=== PATIENT | female | born 1990 | race Caucasian/White ===

== ENCOUNTER 2019-07-14 05:35 | Inpatient (IN) ==
[2019-07-14] MEDS ORDERED: Metoclopramide 10 MG/2 ML VIAL IVP PRN ×2 (05:39→11:12)
[2019-07-14] MEDS ORDERED: Naloxone 0.4 MG/ML INJ IVP PRN (05:39)
[2019-07-14] MEDS ORDERED: Famotidine 20 MG/2 ML VIAL IVP PRN (05:39)
[2019-07-14] MEDS ORDERED: Ringers Solution, Lactated 1,000 ML IVC SCH (05:45)
[2019-07-14 06:43] LABS: Basophils % 0.3 %; Eosinophils # 0.1 K/mcL (0.0-0.6); Eosinophils % 1.6 %; Hematocrit 34.5 % (35.3-44.9); Hemoglobin 11.3 g/dL (11.5-15.4); Immature Granulocytes % 0.2 % (0-4); Lymphocytes # 1.9 K/mcL (0.6-4.6); Lymphocytes % 31.2 %; Mean Corpuscular HGB Conc 32.8 g/dL (31.6-35.5); Mean Corpuscular Hemoglobin 32.9 pg (28.0-33.3); Mean Corpuscular Volume 100.6 fL (83.0-100.0); Mean Platelet Volume 12.2 fL (9.4-12.4); Monocytes # 0.4 K/mcL (0.0-1.3); Monocytes % 6.3 %; Neutrophils # 3.7 K/mcL (1.6-8.9); Platelet Count 145 K/mcL (140-400); Red Blood Count 3.43 M/mcL (3.82-4.97); Red Cell Distribution Width 13.8 % (11.5-14.5); Segmented Neutrophils % 60.4 %; White Blood Count 6.2 K/mcL (4.3-11.1)
[2019-07-14] MEDS ORDERED: CeFAZolin Premix DUPLEX 2,000 MG/50 ML BAG IVPB ONE (07:00)
[2019-07-14] MEDS ORDERED: *HR* Morphine Sulfate/PF 10 MG/10 ML AMPUL ONE (07:33)
[2019-07-14] MEDS ORDERED: *HR* FentaNYL (PF) 100 MCG/2 ML VIAL ONE (07:33)
[2019-07-14] MEDS ORDERED: *HR* Oxytocin 10 UNIT/ML VIAL IM ONE (07:35)
[2019-07-14] MEDS ORDERED: *HR* Phenylephrine 10 MG/ML VIAL ONE (07:35)
[2019-07-14] MEDS ORDERED: Ibuprofen 400 MG TABLET PO PRN (07:55)
[2019-07-14] MEDS ORDERED: EPHEDrine 50 MG/ML VIAL ONE (07:55)
[2019-07-14] MEDS ORDERED: Ondansetron 4 MG/2 ML VIAL IVP PRN ×2 (07:55→11:12)
[2019-07-14] MEDS ORDERED: *HR* OxyCODONE/APAP 5/325 TABLET PO PRN (07:55)
[2019-07-14] MEDS ORDERED: Acetaminophen IV 1,000 MG/100 ML INFUS..BTL IVPB ONE (07:56)
[2019-07-14] MEDS ORDERED: Ringers Solution, Lactated 1,000 ML ONE ×2 (08:05→19:04)
[2019-07-14 08:20] LABS: Amphetamine Screen,Urine Negative ng/mL (Cutoff=1000); Barbiturate Screen,Urine Negative ng/mL (Cutoff=200); Benzodiazepines Screen,Urine Negative ng/mL (Cutoff=200); Cannabinoid Screen,Urine Negative ng/mL (Cutoff = 50); Cocaine Screen,Urine Negative ng/mL (Cutoff= 300); Opiate Screen,Urine Negative ng/mL (Cutoff=300); Phencyclidine Screen,Urine Negative ng/mL (Cutoff=25)
[2019-07-14] MEDS ORDERED: Oxytocin 20 units/ LR 1000 mL 20 UNIT/1,000 ML BAG IVC ONE (10:38)
[2019-07-14] MEDS ORDERED: Sennosides 8.6 MG TABLET PO PRN (11:12)
[2019-07-14] MEDS ORDERED: Oxytocin 20 units/ LR 1000 mL 20 UNIT/1,000 ML BAG IVC SCH (11:12)
[2019-07-14] MEDS: Ibuprofen 600 MG TABLET PO PRN ×2 (11:46→22:13)
[2019-07-14] MEDS: metroNIDAZOLE 500 MG TABLET PO SCH ×2 (13:05→22:14)
[2019-07-14] MEDS: Simethicone 80 MG TAB.CHEW PO PRN ×2 (15:47→22:13)
[2019-07-14] MEDS: *HR* OxyCODONE/APAP 5/325 TABLET PO PRN (15:47)
[2019-07-14] MEDS ORDERED: ceFAZolin 2,000 MG in Water for inj. (sterile) 10 ML IVP SCH (16:00)
[2019-07-15] MEDS: Ibuprofen 600 MG TABLET PO PRN ×3 (03:20→21:13)
[2019-07-15] MEDS: *HR* OxyCODONE/APAP 5/325 TABLET PO PRN ×5 (03:20→21:13)
[2019-07-15 06:54] LABS: Basophils % 0.3 %; Eosinophils # 0.1 K/mcL (0.0-0.6); Eosinophils % 1.9 %; Hematocrit 30.1 % (35.3-44.9); Hemoglobin 9.9 g/dL (11.5-15.4); Immature Granulocytes % 0.3 % (0-4); Lymphocytes # 1.5 K/mcL (0.6-4.6); Lymphocytes % 19.7 %; Mean Corpuscular HGB Conc 32.9 g/dL (31.6-35.5); Mean Corpuscular Hemoglobin 31.9 pg (28.0-33.3); Mean Corpuscular Volume 97.1 fL (83.0-100.0); Mean Platelet Volume 11.5 fL (9.4-12.4); Monocytes # 0.4 K/mcL (0.0-1.3); Monocytes % 5.5 %; Neutrophils # 5.4 K/mcL (1.6-8.9); Platelet Count 135 K/mcL (140-400); Segmented Neutrophils % 72.3 %; White Blood Count 7.4 K/mcL (4.3-11.1)
[2019-07-15] MEDS: Prenatal Vit/FA 1 EACH TABLET PO SCH (08:09)
[2019-07-15] MEDS: metroNIDAZOLE 500 MG TABLET PO SCH ×3 (08:10→21:13)
[2019-07-15] MEDS: Simethicone 80 MG TAB.CHEW PO PRN ×2 (08:14→21:12)
[2019-07-15] MEDS ORDERED: CeFAZolin Premix DUPLEX 2,000 MG/50 ML BAG IVPB SCH (09:22)
[2019-07-16] MEDS: *HR* OxyCODONE/APAP 5/325 TABLET PO PRN ×3 (02:11→10:16)
[2019-07-16] MEDS: Ibuprofen 600 MG TABLET PO PRN (05:30)
[2019-07-16] MEDS: Prenatal Vit/FA 1 EACH TABLET PO SCH (10:16)
[2019-07-16 10:54] VITALS: BP 100/59
== END 2019-07-16 11:50 | disposition home or self-care (01) | DRG 787 ==
LOC: 1NENULAB 05:35 → 1NENUOBS 11:08
PROVIDERS: ADMIT Obstetrics & Gynecology; ATTEND Obstetrics & Gynecology